=== PATIENT | female | born 2000 | race African-American/Black ===

== ENCOUNTER 2025-11-24 20:58 | Emergency (ER) | payer MEDICAID ==
[~2025-11-24] VITALS: Ht 172.7 cm; Wt 73.0 kg
[2025-11-24 21:10] VITALS: BP 151/91; PULSE 88; RESP 16; TEMP 98.1; O2SAT 100
[2025-11-24 23:00] LABS: BASOPHILS % 0.8 % (0.0-2.0); EOSINOPHILS % 1.2 % (0.0-5.0); HEMATOCRIT. 47.1 % (36.0-48.0); HEMOGLOBIN. 16.1 g/dL (12.0-16.0); LYMPHOCYTES % 24.9 % (20.0-50.0); MEAN PLATELET VOLUME 8.3 fl (7.4-10.4); MONOCYTES % 6.8 % (2.0-8.0); NEUTROPHILS % 66.3 % (40.0-76.0); PLATELET 209 x1000/uL (130-400); RED BLOOD CELL COUNT 5.39 mill/uL (4.2-5.4); RED CELL DISTRIBUTION WIDTH 13.4 % (11.6-14.6)
[2025-11-24 23:14] LABS: CREATININE 0.7 mg/dL (0.6-1.0)
[2025-11-24 23:15] LABS: UREA NITROGEN BLOOD 7 mg/dL (9-23)
[2025-11-24] MEDS: POTASSIUM CHLORIDE 20MEQ/PACKET PO ONE (23:55)
== END 2025-11-25 01:20 | disposition home or self-care (01) ==
LOC: ER 20:58
DX: R53.83 Other fatigue (principal); E87.6 Hypokalemia
CPT/HCPCS: 36415; 71045; 80048; 85025; 93005; 99285